=== PATIENT | female | born 1930 | race Caucasian/White ===

== ENCOUNTER → 2021-06-23 | Outpatient (REF) ==
[2021-06-23 12:13] LABS: ALBUMIN 2.9 g/dL (3.4-4.8); POTASSIUM 3.1 mmol/L (3.5-5.1)
[2021-06-23 12:14] LABS: CALCIUM 9.6 mg/dL (8.3-10.5)
[2021-06-23 12:15] LABS: TOTAL PROTEIN 5.2 g/dL (6.2-8.1)
[2021-06-23 12:22] LABS: TOTAL BILIRUBIN 0.3 mg/dL (0.2-1.2)
[2021-06-23 14:16] LABS: POTASSIUM 3.1 mmol/L (3.5-5.1)
[2021-06-23 14:17] LABS: CALCIUM 9.7 mg/dL (8.3-10.5)
[2021-06-23 14:19] LABS: TOTAL PROTEIN 5.3 g/dL (6.2-8.1)
[2021-06-23 14:21] LABS: TOTAL BILIRUBIN 0.3 mg/dL (0.2-1.2)
== END ==
LOC: LAB 09:19
DX: Z01.89 Encounter for other specified special examinations (principal)